=== PATIENT | female | born 1980 | race Caucasian/White ===

== ENCOUNTER 2017-01-14 20:02 | Emergency (ER) | payer BC ==
--- NOTE | 2017-01-15 16:40 | ER ---
ADMIT: 01/14/2017 RM/LOC: ER [facility] MR#: [id number] [address] [id number] ANTHONY BERMAN [address] [place] [address] Emergency Room Report SEX: F AGE: 36 : 1980 DATE: 01/14/2017 ADDENDUM: This patient comes to the ER because she has a rash on her face. She notices that over the last few months, every time she goes out in the sun, she breaks out in hives. Her doctor has given her some allergy medication for this. She tries to go out always with protection but today was out for a bit and now has hives on her neck where she was exposed to the sun and a little bit on her face. It is quite itchy. The rash is consistent with urticaria. She has no swelling in her throat, and her lungs are clear. She was given Benadryl and prednisone. She is to follow up with her primary and possibly a diamond grinder to determine the sudden sun sensitivity. Please see my T-sheet. LOUISA Monroe / Ra Law MD / anisal JOB #: [id number] CC: Ra Law MD, Attending Physician Tasha River MD, Family Physician
== END 2017-01-14 20:53 | disposition home or self-care (01) ==
LOC: ER 20:02
DX: L50.0 Allergic urticaria (principal); Z79.899 Other long term (current) drug therapy